=== PATIENT | female | born 1965 | race Caucasian/White ===

== ENCOUNTER → 2019-10-22 15:42 | Outpatient (CLI) | payer BC, MEDICAID | END | disposition home or self-care (01) | LOC: D.RAD 15:42 | PROVIDERS: ATTEND Emergency Medicine | DX: R91.1 Solitary pulmonary nodule (principal) ==

== ENCOUNTER 2019-11-21 19:35 | Emergency (ER) | payer BC, MEDICAID ==
[2019-11-23 00:57] VITALS: BMI 31.0
== END 2019-11-21 20:30 | disposition left against medical advice (07) ==
LOC: D.ER 19:35
DX: R10.9 Unspecified abdominal pain (principal)

== ENCOUNTER 2019-11-22 11:17 | Observation (INO) | payer BC, MEDICAID ==
[~2019-11-22] VITALS: Ht 167.6 cm; Wt 87.3 kg
[2019-11-23 00:57] VITALS: Ht 167.6 cm; Wt 87.3 kg
[2019-11-23] MEDS ORDERED: HYDROXYCHLOROQ200 MG PO (01:24)
[2019-11-23] MEDS ORDERED: ULTRAM50 MG PO (01:25)
[2019-11-23] MEDS ORDERED: MOBIC7.5 MG PO (01:26)
[2019-11-23] MEDS ORDERED: CYCLOBENZAPRINE10 MG PO (01:27)
[2019-11-23] MEDS ORDERED: HYDROCODON-ACE1 EA10 PO (09:56)
[2019-11-23 12:00] VITALS: BP 134/64
[2019-11-23] MEDS ORDERED: ZOFRAN4 MG PO (14:11)
== END 2019-11-23 15:30 | disposition home or self-care (01) ==
LOC: D.ER 11:17 → D.MS 14:33 → OBSVTIME 15:07 → D.MS 11-23 15:30
PROVIDERS: ADMIT Surgery; ATTEND Surgery
DX: K35.30 Acute appendicitis with localized peritonitis, without perforation or gangrene (principal); F17.200 Nicotine dependence, unspecified, uncomplicated; G89.29 Other chronic pain; M54.5 Low back pain; M79.7 Fibromyalgia

== ENCOUNTER → 2020-12-10 18:07 | Outpatient (CLI) | payer MEDICARE, MEDICAID ==
[2020-07-01 16:23] VITALS: BMI 31.3
[~2020-12-10 18:07] MED LIST: CARAFATE1 G PO; CYCLOBENZAPRINE10 MG PO; HYDROCODON-ACE1 EA10 PO; HYDROXYCHLOROQ200 MG PO; MACROBID100 MG; MELATONIN10 M1 PO; MOBIC7.5 MG PO; NICODERM CQ1 EAC2 TRANSDERM; PHENERGAN25 M1 PO; PROTONIX40 MG PO; ULTRAM50 MG PO; ZOFRAN4 MG PO
== END | disposition home or self-care (01) ==
LOC: D.RAD 18:07
PROVIDERS: ATTEND Emergency Medicine
DX: M22.2X2 Patellofemoral disorders, left knee (principal); M25.562 Pain in left knee